=== PATIENT | female | born 1960 | race Caucasian/White ===

== ENCOUNTER 2017-08-08 10:15 | Outpatient (CLI) | payer BC ==
--- NOTE | 2017-08-08 12:14 | RAD ---
RADIOGRAPH LEFT SHOULDER 3 VIEWS: DATE: 08/08/17. HISTORY: A 57-year-old female with chronic left shoulder pain. No trauma. FINDINGS: A few tiny corticated calcific or ossific fragments project over the left AC joint space. No signifi cant joint space narrowing, erosions, or osteophytosis, of the AC joint. Mild degenerative changes o f the inferior aspect of the glenohumeral joint. No destructive osseous lesion, periosteal elevation , fracture, or subluxation. IMPRESSION: 1. Nonspecific tiny calcific/ossific fragments at the left acromioclavicular joint space. 2. Mild osteoarthrosis of the glenohumeral joint. 3. Otherwise, negative. POS: TPC
--- NOTE | 2017-08-08 12:17 | RAD ---
RADIOGRAPH RIGHT KNEE 3 VIEWS: DATE: 08/08/17. HISTORY: A 57-year-old female with chronic right knee pain. No trauma. COMPARISON: None. FINDINGS: Patellofemoral compartment: severe osteophytosis. Joint space narrowing. Medial Compartment: Moderate to severe osteophytosis. Moderate to severe joint space narrowing. Mil d sclerosis. Lateral Compartment: Moderate osteophytosis. No joint space narrowing. IMPRESSION: Tricompartmental osteoarthrosis, somewhat severe in the patellofemoral and medial compartments. POS: TPC
--- NOTE | 2017-08-08 12:19 | RAD ---
RADIOGRAPH LEFT KNEE 3 VIEWS: DATE: 08/08/17. HISTORY: A 57-year-old female with chronic left knee pain. No trauma. Progressive worsening. COMPARISON: None. FINDINGS: Patellofemoral Compartment: Moderate osteophytosis. Joint space probably maintained. Medial Compartment. Moderate to large osteophytosis. Moderate to severe joint space narrowing. Mil d sclerosis. Lateral Compartment: Joint space maintained. Small to moderate osteophytosis. IMPRESSION: Tricompartmental osteoarthrosis, most severe in the medial compartment (somewhat severe). POS: TPC
== END 2017-08-08 10:16 | disposition home or self-care (01) ==
LOC: SCSRAD 10:15
PROVIDERS: ATTEND Family Medicine
DX: M25.512 Pain in left shoulder (principal); M25.562 Pain in left knee; M25.561 Pain in right knee; M17.0 Bilateral primary osteoarthritis of knee; M19.012 Primary osteoarthritis, left shoulder

== ENCOUNTER 2018-09-08 09:53 | Outpatient (CLI) | payer BC ==
--- NOTE | 2018-09-08 11:38 | MMO ---
Bilateral MAMMO Bilat Screen DDI. CLINICAL HISTORY: Patient is 58 years old and is seen for screening. The patient has the following family history of breast cancer: maternal aunt. The patient has no personal history of cancer. VIEWS: The views performed were: bilateral craniocaudal and bilateral mediolateral oblique. FILMS COMPARED: The present examination has been compared to a prior imaging study performed at [facility] on 02/10/2015. This study has been interpreted with the assistance of computer-aided detection. MAMMOGRAM FINDINGS: There are scattered fibroglandular densities. Finding 1: There are new fine pleomorphic calcifications with grouped or clustered distribution seen in the upper region of the left breast. Finding 2: There is an intramammary lymph node seen in the right breast. IMPRESSION: FINDING 1: NEW CALCIFICATIONS IN THE LEFT BREAST REQUIRE ADDITIONAL EVALUATION. MAGNIFICATION VIEWS ARE RECOMMENDED. FINDING 2: INTRAMAMMARY LYMPH NODE IN THE RIGHT BREAST IS BENIGN. ACR BI-RADS Category 0 - Incomplete: Need additional imaging evaluation. [facility] will notify the patient of the need for additional imaging services. MAMMOGRAPHY NOTE: 1. A negative mammogram report should not delay a biopsy if a dominant of clinically suspicious mass is present. 2. Approximately 10% to 15% of breast cancers are not detected by mammography. 3. Adenosis and dense breasts may obscure an underlying neoplasm. Reported by: TALIA MARMOLEJO MD Electonically Signed: [id number]
== END 2018-09-08 09:54 | disposition home or self-care (01) ==
LOC: SCSMAMMO 09:53
PROVIDERS: ATTEND Family Medicine
DX: Z12.31 Encounter for screening mammogram for malignant neoplasm of breast (principal); Z80.3 Family history of malignant neoplasm of breast; R92.1 Mammographic calcification found on diagnostic imaging of breast
CPT/HCPCS: 77067

== ENCOUNTER 2018-09-18 08:19 | Outpatient (CLI) | payer BC ==
--- NOTE | 2018-09-18 08:51 | MMO ---
Left Breast MAMMO Unilat Diag DDI LT+MONAE. CLINICAL HISTORY: Patient is 58 years old and is seen for diagnostic exam. The patient has the following family history of breast cancer: maternal aunt. The patient has no personal history of cancer. VIEWS: The views performed were: left craniocaudal spot compression magnification; left mediolateral oblique spot compression magnification; and left mediolateral with tomosynthesis. FILMS COMPARED: The present examination has been compared to prior imaging studies performed at [facility] on 09/08/2018, and at [facility] on 02/10/2015. MAMMOGRAM FINDINGS: There are scattered fibroglandular densities. There are new fine pleomorphic calcifications with grouped or clustered distribution seen in the left breast at 12 o'clock. IMPRESSION: NEW CALCIFICATIONS IN THE LEFT BREAST ARE SUSPICIOUS. A STEREOTACTIC BREAST BIOPSY IS RECOMMENDED. THE RESULTS OF THIS EXAM WERE SENT TO THE PATIENT. ACR BI-RADS Category 4 - Suspicious abnormality - biopsy should be considered MAMMOGRAPHY NOTE: 1. A negative mammogram report should not delay a biopsy if a dominant of clinically suspicious mass is present. 2. Approximately 10% to 15% of breast cancers are not detected by mammography. 3. Adenosis and dense breasts may obscure an underlying neoplasm. Reported by: NICOLE YOUNG MD Electonically Signed: [id number]
== END 2018-09-18 08:20 | disposition home or self-care (01) ==
LOC: BICMAMMO 08:19
PROVIDERS: ATTEND Family Medicine
DX: R92.1 Mammographic calcification found on diagnostic imaging of breast (principal)
CPT/HCPCS: G0279

== ENCOUNTER → 2018-09-27 | Day surgery (SDC) | payer BC ==
--- NOTE | 2018-09-27 15:09 | MMO ---
LEFT BREAST STEREOTACTIC BIOPSY: Date: 09/27/18 HISTORY: Left breast calcification. COMPARISON: 09/18/18. FINDINGS: Multiple attempts were made to perform a stereotactic biopsy of left breast calcification. Occasional calcification is present in the biopsy sample. Biopsy clip was placed. Postprocedure mammogram demon strates the clip to be adjacent to the calcifications on the CC projection. A majority of the calcifi cations still appear to be present. On the MLO projection, calcifications are more difficult to appre ciate, but are presumed to still be present. On the MLO projection, the clip appears to be somewhat m ore inferior to the calcifications. TECHNIQUE: Consent obtained to perform a left breast stereotactic biopsy. Patient was placed in a prone position on the stereotactic table. Calcifications were identified. Skin was prepped and draped in the steril e fashion. 1% lidocaine, buffered with sodium bicarbonate, was used for local anesthesia. Needle posi tion was confirmed pre and post-firing, with respect to the calcifications. Six samples were obtained . Single calcification was present. Needle was advanced and additional six samples were obtained. Sin gle calcification was present. A third series of samples was obtained. No significant calcifications. Post biopsy clip was placed. Clip was outside of the needle. Postprocedure mammogram was performed a nd demonstrates calcifications to be present. The biopsy clip is slightly medial and inferior to the calcifications. IMPRESSION: Three separate stereotactic biopsy attempts were performed. A total of 18 10-gauge core biopsy sample s were obtained. Occasional calcifications noted. Final pathologic diagnosis pending. RECOMMENDATION: Given the scant number of calcifications, the course of action will depend on the pathology result. I f there are no calcifications reported or minimal calcifications reported or a benign biopsy reported , a needle localization is recommended given the suspicious nature of the calcifications. CODE T. POS: OFF
== END ==
LOC: MAMMO 06:59
PROVIDERS: ATTEND Family Medicine
PROC: 0HBU3ZX Excision of Left Breast, Percutaneous Approach, Diagnostic (ICD-10-PCS; principal; 2018-09-27)
DX: D05.12 Intraductal carcinoma in situ of left breast (principal); R92.1 Mammographic calcification found on diagnostic imaging of breast
CPT/HCPCS: 19283; 76098; 88305; 88341; 88342

== ENCOUNTER 2018-10-06 07:24 | Outpatient (CLI) | payer BC ==
[2018-10-06 15:02] LABS: #Basophils 0.1 thou/uL (0.0-0.2); #Eosinphils 0.2 thou/uL (0.0-0.7); #Lymphocytes 2.7 thou/uL (1.20-3.40); #Monocytes 0.5 thou/uL (0.11-0.59); #Neutrophils 5.1 thou/uL (1.40-6.50); %Basophils 0.7 % (0.0-1.0); %Eosinophils 2.6 % (0.0-10.0); %Monocytes 6.3 % (0.0-10.0); %Neutrophils 59.4 % (42.0-75.0); Hemoglobin 15.4 g/dL (12.0-16.0); Mean Corpuscular HGB CONC 33.5 g/dL (32.0-36.0); Mean Corpuscular Hemoglobin 30.2 pg (27.0-31.0); Mean Corpuscular Volume 90.2 fL (78.0-98.0); Mean Platelet Volume 10.3 fL (7.4-10.4); Platelet Count 167 thou/uL (130-400); RBC Distribution Width 12.6 % (11.5-14.5); Red Blood Cell (RBC) Count 5.08 mill/uL (4.20-5.40); White Blood Cell (WBC) Count 8.6 thou/uL (4.8-10.8)
[2018-10-06 15:21] LABS: Anion Gap 16 mmol/L (10-20); BUN (Urea Nitrogen) 13 mg/dL (9.8-20.1); Calc. Creatinine Clearance 0 mL/min (70-130); Calcium 9.3 mg/dL (7.8-10.44); Carbon Dioxide 24 mmol/L (22-29); Chloride 104 mmol/L (98-107); Estimated GFR-MDRD 62; Glucose 278 mg/dL (70-105); Potassium 4.3 mmol/L (3.5-5.1); Sodium 140 mmol/L (136-145)
== END 2018-10-06 07:25 | disposition home or self-care (01) ==
LOC: LABBT 07:24
PROVIDERS: ATTEND Specialist
DX: Z01.812 Encounter for preprocedural laboratory examination (principal); D05.12 Intraductal carcinoma in situ of left breast
CPT/HCPCS: 80048; 85025; 93005; 93010

== ENCOUNTER 2018-10-10 06:49 | Day surgery (SDC) | payer BC ==
[2018-10-06 14:17] VITALS: BMI 43.0
[2018-10-10] MEDS ORDERED: Fentanyl 100 MCG/2 ML VIAL ONE (07:50)
[2018-10-10] MEDS ORDERED: Ketorolac Tromethamine 30 MG/ML VIAL ONE (08:13)
[2018-10-10] MEDS ORDERED: Famotidine/PF 20 mg/2ml Vial ONE (08:31)
[2018-10-10] MEDS ORDERED: Midazolam HCl 2 mg/2 ml Vial ONE (08:31)
[2018-10-10] MEDS ORDERED: Bupivacaine/Epinephrine 0.25% 30 ML VIAL ONE (08:39)
--- NOTE | 2018-10-10 10:14 | MMO ---
LEFT BREAST SPECIMEN RADIOGRAPH: DATE: 10/10/2018. COMPARISON: None. HISTORY: Suspicious calcifications within left breast, evaluate postsurgical specimen FINDINGS: A specimen radiograph is provided. The localization wire is present within the specimen as is the pos t biopsy clip and the microcalcifications. The microcalcifications are centered at the H4-5 region and the postbiopsy clip is present at the G7 location. IMPRESSION: Excisional biopsy specimen contains the biopsy clip and suspicious microcalcifications. Transcribed Date/Time: 10/10/2018 10:23 AM
--- NOTE | 2018-10-10 10:16 | MMO ---
LEFT BREAST NEEDLE LOCALIZATION: DATE: 10/10/2018. HISTORY: Suspicious microcalcifications. Needle localization was requested prior to excisional biopsy. FINDINGS: Informed consent obtained prior to the procedure. Suspicious microcalcifications as well as postbiopsy clip were localized in CC projection. Skin overl patricia this region was prepped and draped in normal sterile fashion and anesthetized with 1% buffered lidocaine. A 7.5 cm Speedwell needle was advanced and locked in place. Proper location was confirmed with CC and MLO imaging. Patient tolerated the procedure well with no postprocedural complications and was sent to the operati ng room for excisional biopsy. IMPRESSION: Successful needle localization prior to excisional biopsy as detailed above. Transcribed Date/Time: 10/10/2018 10:21 AM
[2018-10-10] MEDS ORDERED: Promethazine HCl 25 MG/ML VIAL ONE (11:30)
[2018-10-10] MEDS ORDERED: Ondansetron PF 4 MG/2 ML Vial ONE (17:32)
[2018-10-10] MEDS ORDERED: PROPOFOL 200 MG/20 ML VIAL ONE (17:32)
[2018-10-10] MEDS ORDERED: ePHEDrine 50 MG/ML VIAL ONE (17:32)
[2018-10-10] MEDS ORDERED: Lidocaine 1% PF 5 ML VIAL ONE (17:32)
--- NOTE | 2018-10-11 11:45 | OP ---
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 POSTOPERATIVE DIAGNOSIS: Left breast ductal carcinoma in situ. OPERATION PERFORMED: Left breast mammographic needle localized lumpectomy. ANESTHESIA: General endotracheal. INDICATIONS: The patient is a morbidly obese 58-year-old white female. She presented with left breast microcalcifications. Biopsy of these revealed DCIS. I recommended needle localized lumpectomy. DESCRIPTION OF OPERATION: Informed consent was obtained. The patient was taken to the operating room, where general endotracheal anesthesia obtained with the patient in supine position. Left breast and localizing needle were prepped with ChloraPrep and draped in sterile fashion. The needle entered the breast from a superior direction extending inferiorly. The needle entered approximately the 12 o'clock radian of the breast. After reviewing the images, it was determined that the clip and the residual calcifications were both located along the course of the needle. The clip was about 1 cm from the end of the needle and the calcifications were little closer to the skin. The localizing needle entered the skin at about 6 cm from the tip of the needle. I chose a counter incision a couple of cm inferior to the needle insertion site. Local anesthetic was infiltrated using 0.25% Marcaine with epinephrine. A transverse incision was created and dissection was carried through skin and subcutaneous tissue. About 1 cm into the breast, I dissected superiorly to identify the localizing needle. This was identified at about 4 cm from the tip of the needle. I decided this was appropriate distance to begin the circum-wire dissection. The needle was removed and the wire was replaced through the incision. The breast tissue into which the wire entered was grasped with 2 pairs of Allis clamps. A wide core of tissue was dissected around the wire extending inferiorly. The lump of breast tissue with the wire present within it was removed intact. Localizing sutures were placed in the usual fashion and the specimen was submitted for specimen mammography. This revealed that both the localizing clip and the residual microcalcifications were included within the specimen. Meticulous hemostasis was obtained within the wound. It was irrigated with saline and closed in layers with 3-0 and 4-0 Monocryl. Additional local anesthetic was infiltrated during closure. Dermabond was placed externally. There were no complications. The patient tolerated the procedure well and was taken to recovery room in stable condition. Job ID: [id number]
== END 2018-10-10 12:15 | disposition home or self-care (01) ==
LOC: SDC 06:49
PROVIDERS: ATTEND Specialist
PROC: 0HBU0ZZ Excision of Left Breast, Open Approach (ICD-10-PCS; principal; 2018-10-10)
PROC: 0HBU0ZX Excision of Left Breast, Open Approach, Diagnostic (ICD-10-PCS; principal; 2018-10-10)
DX: D05.12 Intraductal carcinoma in situ of left breast (principal); I10 Essential (primary) hypertension; E03.9 Hypothyroidism, unspecified; E11.9 Type 2 diabetes mellitus without complications; E66.01 Morbid (severe) obesity due to excess calories; F17.210 Nicotine dependence, cigarettes, uncomplicated; F32.9 Major depressive disorder, single episode, unspecified; J45.909 Unspecified asthma, uncomplicated; M19.90 Unspecified osteoarthritis, unspecified site; Z68.41 Body mass index [BMI] 40.0-44.9, adult; Z79.4 Long term (current) use of insulin; Z79.899 Other long term (current) drug therapy; Z88.8 Allergy status to other drugs, medicaments and biological substances
CPT/HCPCS: 19281; 36416; 76098; 88307; J0131; J0690; J1885; J2001; J2250; J2405; J2550; J2704; J3010; J3490; S0028

== ENCOUNTER 2018-10-27 08:03 | Outpatient (CLI) | payer BC ==
[2018-10-27 12:08] LABS: #Basophils 0.1 thou/uL (0.0-0.2); #Eosinphils 0.2 thou/uL (0.0-0.7); #Lymphocytes 2.3 thou/uL (1.20-3.40); #Monocytes 0.5 thou/uL (0.11-0.59); #Neutrophils 3.6 thou/uL (1.40-6.50); %Basophils 0.8 % (0.0-1.0); %Eosinophils 2.9 % (0.0-10.0); %Lymphocytes 34.9 % (21.0-51.0); %Monocytes 6.8 % (0.0-10.0); %Neutrophils 54.6 % (42.0-75.0); Hemoglobin 14.9 g/dL (12.0-16.0); Mean Corpuscular HGB CONC 33.4 g/dL (32.0-36.0); Mean Corpuscular Hemoglobin 30.3 pg (27.0-31.0); Mean Corpuscular Volume 90.9 fL (78.0-98.0); Mean Platelet Volume 11.3 fL (7.4-10.4); Platelet Count 154 thou/uL (130-400); RBC Distribution Width 12.6 % (11.5-14.5); Red Blood Cell (RBC) Count 4.92 mill/uL (4.20-5.40); White Blood Cell (WBC) Count 6.6 thou/uL (4.8-10.8)
[2018-10-27 12:29] LABS: Anion Gap 16 mmol/L (10-20); BUN (Urea Nitrogen) 15 mg/dL (9.8-20.1); Calc. Creatinine Clearance 0 mL/min (70-130); Calcium 9.6 mg/dL (7.8-10.44); Carbon Dioxide 23 mmol/L (22-29); Chloride 106 mmol/L (98-107); Estimated GFR-MDRD 73; Glucose 264 mg/dL (70-105); Potassium 4.2 mmol/L (3.5-5.1); Sodium 141 mmol/L (136-145)
== END 2018-10-27 08:04 | disposition home or self-care (01) ==
LOC: LABBT 08:03
PROVIDERS: ATTEND Specialist
DX: Z01.812 Encounter for preprocedural laboratory examination (principal); D05.12 Intraductal carcinoma in situ of left breast
CPT/HCPCS: 80048; 85025

== ENCOUNTER 2018-11-02 07:21 | Day surgery (SDC) | payer BC ==
[2018-10-27 11:30] VITALS: BMI 43.1
[2018-11-02] MEDS ORDERED: Bupivacaine/Epinephrine 0.25% 30 ML VIAL ONE (08:48)
[2018-11-02] MEDS ORDERED: Ketorolac Tromethamine 30 MG/ML VIAL ONE (08:50)
[2018-11-02] MEDS ORDERED: PROPOFOL 40 ML ONE (09:17)
[2018-11-02] MEDS ORDERED: Fentanyl 100 MCG/2 ML VIAL ONE (09:17)
[2018-11-02] MEDS ORDERED: Midazolam HCl 2 mg/2 ml Vial ONE (09:17)
[2018-11-02] MEDS ORDERED: Famotidine/PF 20 mg/2ml Vial ONE (09:17)
[2018-11-02] MEDS ORDERED: HYDROcodone/Acetaminophen 5/325 mg Tablet ONE (11:00)
[2018-11-02] MEDS ORDERED: PROPOFOL 200 MG/20 ML VIAL ONE (13:51)
[2018-11-02] MEDS ORDERED: Metoclopramide HCl 10 MG/2 ML VIAL ONE (13:51)
[2018-11-02] MEDS ORDERED: Ondansetron PF 4 MG/2 ML Vial ONE (13:51)
[2018-11-02] MEDS ORDERED: Lidocaine 1% PF 5 ML VIAL ONE (13:51)
--- NOTE | 2018-11-03 09:44 | OP ---
DATE OF PROCEDURE: 11/02/2018 PREOPERATIVE DIAGNOSIS: Left breast ductal carcinoma in situ. POSTOPERATIVE DIAGNOSIS: Left breast ductal carcinoma in situ. OPERATION PERFORMED: Left breast lumpectomy, re-excision of lateral margin. ANESTHESIA: Total intravenous anesthesia with local using 0.25% Marcaine with epinephrine. INDICATIONS: The patient is a 58-year-old morbidly obese white female. She underwent left breast lumpectomy recently with findings of a positive lateral margin. Her diagnosis was DCIS. She has returned to the operating room for re-excision of the lateral margin. DESCRIPTION OF PROCEDURE: Informed consent was obtained. The patient was taken to the operating room, where general anesthesia was obtained with the patient in supine position. The left breast was prepped with ChloraPrep, draped in sterile fashion. Local anesthetic was infiltrated using 0.25% Marcaine with epinephrine. Previous incision was reopened. Dissection was carried through skin and subcutaneous tissue down to the previous biopsy cavity. I raised a flap of breast tissue along the lateral aspect of the biopsy cavity, incorporating the anterior and posterior aspects as well as part of the superior and inferior aspects. The specimen was removed intact. It was tagged for orientation with suture and passed off the field. Meticulous hemostasis was obtained with electrocautery. The wound was infiltrated with additional local anesthetic. It was closed in layers with 3-0 and 4-0 Monocryl. Dermabond was placed externally. There were no complications. The patient tolerated the procedure well and was taken to recovery room in stable condition. Job ID: [id number]
== END 2018-11-02 11:35 | disposition home or self-care (01) ==
LOC: SDC 07:21
PROVIDERS: ATTEND Specialist
PROC: 0HBU0ZZ Excision of Left Breast, Open Approach (ICD-10-PCS; principal; 2018-11-02)
DX: D05.11 Intraductal carcinoma in situ of right breast (principal); I10 Essential (primary) hypertension; E11.9 Type 2 diabetes mellitus without complications; E03.9 Hypothyroidism, unspecified; F17.200 Nicotine dependence, unspecified, uncomplicated; F32.9 Major depressive disorder, single episode, unspecified; M19.90 Unspecified osteoarthritis, unspecified site; G47.33 Obstructive sleep apnea (adult) (pediatric); Z79.4 Long term (current) use of insulin; Z79.899 Other long term (current) drug therapy; Z88.8 Allergy status to other drugs, medicaments and biological substances; Z99.89 Dependence on other enabling machines and devices
CPT/HCPCS: 36416; 88307; J0131; J0690; J1885; J2001; J2250; J2405; J2704; J2765; J3010; S0028